=== PATIENT | male | born 1980 | race Caucasian/White ===

== ENCOUNTER 2018-03-29 20:42 | Emergency (ER) | payer BC ==
[~2018-03-29] VITALS: Ht 180.3 cm; Wt 107.7 kg
[2018-03-30] MEDS ORDERED: ELIQUIS5 MG PO (00:54)
[2018-03-30 01:07] VITALS: BP 131/92
== END 2018-03-30 01:09 | disposition home or self-care (01) ==
LOC: EME 20:42
DX: I82.4Z2 Acute embolism and thrombosis of unspecified deep veins of left distal lower extremity (principal); Z86.718 Personal history of other venous thrombosis and embolism; Z85.6 Personal history of leukemia; Z88.8 Allergy status to other drugs, medicaments and biological substances
CPT/HCPCS: 93971; 99281; 99284